=== PATIENT | female | born 1970 | race Caucasian/White ===

== ENCOUNTER 2019-09-07 16:36 | Outpatient (CLI) | payer BC, SELFPAY ==
--- NOTE | ~2019-09-07 | XR_ITS ---
XR hip LT min 3V w AP pelvis 09/07/2019 17:20 Indication: Left hip pain Procedure: 4 views of the left hip including AP pelvis Comparison: 11/27/2018 Findings: There is mild bilateral osteoarthritis of the hips. No fracture or traumatic malalignment. Pelvic rings are intact. Sacral foramen are symmetric. Impression: 1: Mild bilateral osteoarthritis of the hips without significant change to left hip compared with [place] or study. Reviewed, dictated and finalized at location A. Impression: 1: Mild bilateral osteoarthritis of the hips without significant change to left hip compared with prior study.
--- NOTE | ~2019-09-07 | XR_ITS ---
LUMBAR SPINE INDICATION: Low back pain TECHNIQUE: 5 views lumbar spine including flexion/extension views COMPARISON: None FINDINGS: No fracture, subluxation or dislocation. No evidence for spondylolysis or spondylolisthesi s. Vertebral bodies and disk spaces are preserved. No significant change to alignment with flexion/e xtension IMPRESSION: 1: No significant abnormality of the lumbar spine identified. Reviewed, dictated and finalized at location A.
== END 2019-09-07 16:37 | disposition home or self-care (01) ==
LOC: ANHIMG 16:42
PROVIDERS: PCP Internal Medicine; Visit Provider Internal Medicine
DX: M25.552 Pain in left hip (principal); M16.0 Bilateral primary osteoarthritis of hip
CPT/HCPCS: 72110; 73502

== ENCOUNTER 2020-03-14 13:27 | Outpatient (CLI) | payer BC, SELFPAY ==
--- NOTE | ~2020-03-14 | XR_ITS ---
EXAMINATION: XR chest 2V EXAM DATE: 03/14/2020 14:18 INDICATION: R50.9 - Fever, unspecified. TECHNIQUE: Frontal and lateral projections of the chest obtained and reviewed. There is no prior jaclyn dy for comparison. FINDINGS: The lungs are clear. There are no pleural effusions. The cardiomediastinal silhouette is within normal limits. There is no pneumothorax suspected. The bones and soft tissues are unremarkab le. IMPRESSION: No acute cardiopulmonary findings. Reviewed, dictated and finalized at location B. ING [employer]ESS [employer]ER
[2020-03-14 14:18] LABS: Basophils Percent Auto 0.1 % (0.2-1.2); Eosinophils Percent Auto 0.3 % (0-4.4); Hematocrit 37.1 % (37.0-47.0); Hemoglobin 12.3 g/dL (12.0-15.0); Immature Granulocyte Absolute 0.02 K/mm3 (0.00-0.031); Immature Granulocyte Percent A 0.3 % (0-0.5); Lymphocytes Absolute Auto 1.16 K/mm3 (0.9-3.2); Lymphocytes Percent Auto 16.9 % (18.3-44.2); Mean Corpuscular HGB Conc 33.2 g/dl (32-36); Mean Corpuscular Hemoglobin 28.3 pg (26-34); Mean Corpuscular Volume 85.3 fl (80-100); Mean Platelet Volume 9.7 fl (7.4-10.4); Monocytes Absolute Auto 0.7 K/mm3 (0.1-0.6); Monocytes Percent Auto 9.9 % (2.6-8.5); Neutrophils Percent Auto 72.5 % (45.5-73.1); Platelet Count Result 180 k/mm3 (150-375); Red Blood Count 4.35 M/mm3 (4.2-5.4); Red Cell Distribution Width 12.4 % (11.5-14.5); White Blood Count 6.9 K/mm3 (4.5-10.0)
== END 2020-03-14 13:28 | disposition home or self-care (01) ==
PROVIDERS: PCP Internal Medicine; Visit Provider Internal Medicine
DX: Z86.19 Personal history of other infectious and parasitic diseases (principal); R50.9 Fever, unspecified; R05 Cough
CPT/HCPCS: 36415; 71046; 85025